=== PATIENT | female | born 1965 | race Caucasian/White ===

== ENCOUNTER 2017-11-04 17:41 | Observation (INO) ==
--- NOTE | 2017-11-04 18:09 | Emergency Department Note ---
Disposition Clinical Impression: Atypical chest pain, S/P gastric bypass Abdominal pain Qualifiers: Abdominal location: left upper quadrant Qualified Code(s): R10.12 - Left upper quadrant pain UTI (urinary tract infection) Qualifiers: Urinary tract infection type: acute cystitis Hematuria presence: without hematuria Qualified Code(s): N30.00 - Acute cystitis without hematuria Disposition: Admitted As Inpatient Condition: Good Referrals: Diana Baig MD [Primary Care Provider] - Forms: ED Satisfaction Letter General Adult HPI - General Chief complaint: ED Chest Pain Stated complaint: chest pain Time Seen by Provider: 11/04/17 18:00 Nursing Notes Reviewed: Yes Vital Signs Reviewed: Yes - History of Present Illness HPI Narrative: 51-year-old female status post gastric bypass 2013, and previous history of hypertension, presents today with chest pain for the last 30 minutes. She reports her chest pain is pressure-like, epigastric, and radiates towards her left neck and left shoulder. She also admits to nausea but no vomiting. Denies being on any anticoagulants, denies taking any medications besides vitamins at home. She reports that she has had four gastric surgeries since her gastric bypass due to scar tissue formation and abdominal pain. Denies prior MD, CVA/TIA. She reports that her last cardiac workup was prior to her gastric bypass 4 years ago when they performed a left heart catheter and she was diagnosed with "slight" CAD. Denies having any stents. Denies PAD. Does admit to dark and smelly urine, denies dysuria, hematuria. Admits to BL upper extremity tingling and numbness. She reports her abdominal pain is getting worse. Decreased in PO intake due to nausea and pain. Quit smoking in 2007, both biological parents had CAD, no previous MD or PAD/ CVA. Mild CAD. History of HTN. Pt Subjective Complaint: Chest pain - Related Data Home Medications Medication Instructions Recorded Confirmed Multivitamin [One Daily Essential] 1 tab PO DAILY 11/04/17 11/04/17 Ondansetron ODT [Zofran ODT] 4 mg PO Q8H PRN 11/04/17 11/04/17 Allergies Allergy/AdvReac Type Severity Reaction Status Date / Time ketorolac [From Toradol] Allergy Hives Verified 11/04/17 19:58 tramadol Allergy Hives Verified 11/04/17 19:58 morphine AdvReac Vomiting Verified 11/04/17 19:58 anti inflammatory Allergy Hives Uncoded 11/04/17 19:58 Review of Systems: As Per HPI Constitutional: Reports: as per HPI Cardiovascular: Reports: as per HPI Respiratory: Reports: as per HPI Gastrointestinal: Reports: as per HPI Genitourinary: Reports: as per HPI Integumentary: Reports: as per HPI Neurological: Reports: as per HPI Endocrine: Reports: as per HPI Past Medical History - Past Medical History Medical history: Reports: coronary artery disease, diabetes, GERD, hyperlipidemia, hypertension, thyroid disease, other Surgical history: Reports: cholecystectomy, other Psychiatric history: Reports: depression 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 - Social History Smoking Status: Former smoker Smokeless Tobacco Status: No Alcohol use: Reports: none Drug use: Reports: none Physical Exam - General Limitations: no limitations General appearance: alert, in no apparent distress - Head Head exam: atraumatic, normocephalic, normal inspection - Eye Eye exam: Present: normal appearance, EOMI - Expanded Eye Exam Pupils: Left: reactive - ENT ENT exam: normal exam, normal oropharynx, mucous membranes moist - Expanded ENT Exam External ear exam: Present: normal external inspection Mouth exam: Present: normal external inspection Teeth exam: Present: normal inspection Throat exam: Present: normal inspection - Neck Neck exam: Present: normal inspection, full ROM, trachea midline - Chest Chest inspection: Present: normal inspection, symmetric chest wall rise - Respiratory Respiratory exam: Present: normal lung sounds bilaterally - Cardiovascular Cardiovascular exam: Present: regular rate, normal rhythm, normal heart sounds - Abdominal Exam Abdominal exam: Present: soft, tenderness (left sided ), normal bowel sounds. Absent: distention, guarding, rebound, rigidity - Extremities Exam Extremities exam: Present: normal inspection, full ROM, pedal edema (2+ bilaterally). Absent: tenderness - Expanded Upper Extremity Exam Shoulder exam: Present: normal inspection, full ROM Arm exam: Present: normal inspection, full ROM Elbow exam: Present: normal inspection, full ROM Forearm/Wrist exam: Present: normal inspection, full ROM Hand exam: Present: normal inspection, full ROM Vascular exam: Normal: capillary refill, radial pulse - Expanded Lower Extremity Exam Hip/Pelvis exam: Present: normal inspection, full ROM Upper leg exam: Present: normal inspection, full ROM Knee exam: Present: normal inspection, full ROM Ankle exam: Present: normal inspection, full ROM Foot/toe exam: Present: normal inspection, full ROM Neurovascular/Tendon exam: Absent: motor deficit, sensory deficit, tendon deficit - Back Exam Back exam: Present: normal inspection, full ROM. Absent: tenderness - Neurological Exam Neurological exam: Present: alert, oriented X3 - Expanded Neurological Exam Patient oriented to: Present: person, place, time Coma Scale Eye Opening: Spontaneous Coma Scale Motor Response: Obeys Commands Coma Scale Verbal Response: Oriented Coma Scale Total: 15 - Psychiatric Psychiatric exam: Present: normal affect, normal mood - Skin Skin exam: Present: warm, dry, intact, normal color Course Course Narrative: Zofran for nausea, Fentanyl for pain. Pending lab work, troponin, CT abd/pelvis, UA with culture. Will admit for cardiac evaluation when lab work and imaging returns. - Reevaluation(s) Reevaluation #1: UA + nitrite, + leukocyte esterase. Will start antibiotics. Time: 19:30 Vital Signs Pulse Rate 73 11/04/17 18:00 Blood Pressure 158/92 11/04/17 18:00 Temperature 98.4 F 11/04/17 18:01 Pulse Rate 67 11/04/17 19:45 Respiratory Rate 20 11/04/17 19:45 Blood Pressure 132/82 11/04/17 19:45 O2 Sat by Pulse Oximetry 99 11/04/17 19:45 Oxygen Delivery Oxygen Delivery Room Air Medical Decision Making - [facility] Narrative Medical decision making narrative: 51F s/p gastric bypass in 2013 with Heart Score 4. FHx of CAD, history of HTN, BMI> 30, age >45. No recent cardiac work-up. We will admit for further cadiac work-up. - Medical Records Medical records reviewed: Yes I reviewed the patient's medical records. - Lab Data Lab results reviewed: Yes I reviewed the patient's lab results. Result diagrams: 11/04/17 19:08 11/04/17 18:55 Lab Results 11/04/17 11/04/17 11/04/17 Range/Units 18:45 18:55 18:55 WBC (4.3-11.1) K/mcL RBC (3.82-4.97) M/mcL Hgb (11.5-15.4) g/dL Hct (35.3-44.9) % MCV (83.0-100.0) fL MCH (28.0-33.3) pg MCHC (31.6-35.5) g/dL RDW (11.5-14.5) % Plt Count (140-400) K/mcL MPV (9.4-12.4) fL Immature Gran % (0-4) % Seg Neutrophils % % Lymphocytes % % Monocytes % % Eosinophils % % Basophils % % Neutrophils # (1.6-8.9) K/mcL Lymphocytes # (0.6-4.6) K/mcL Monocytes # (0.0-1.3) K/mcL Eosinophils # (0.0-0.6) K/mcL Basophils # (0.0-0.2) K/mcL PT 10.2 (9.4-12.1) Seconds INR 1.0 APTT 37.7 H (26.0-36.0) Seconds Sodium 141 (136-145) mEq/L Potassium 3.6 (3.5-5.1) mEq/L Chloride 107 (98-107) mEq/L Carbon Dioxide 26 (23-29) mEq/L BUN 14 (6-20) mg/dL Creatinine 0.72 (0.60-1.20) mg/dL Est GFR ( Amer) > 60 (> 60) Est GFR (Non-Af Amer) > 60 (> 60) BUN/Creatinine Ratio 19 (6-26) Glucose 96 (70-105) mg/dL Calculated Osmolality 292 (280-300) Calcium 9.3 (8.6-10.3) mg/dL Troponin I < 0.03 (< 0.04) ng/mL B-Natriuretic Peptide (Less than 100) pg/mL Urine Color Yellow (Yellow) Urine Clarity Cloudy A (Clear) Urine pH 6.0 (5.0-8.0) pH Units Ur Specific [place] 1.014 (1.010-1.025) Urine Protein Negative (Neg-Trace) mg/dL Urine Glucose (UA) Normal (Normal) mg/dL Urine Ketones Negative (Negative) mg/dL Urine Blood Negative (Negative) Urine Nitrite Positive A (Negative) Urine Bilirubin Negative (Negative) Urine Urobilinogen Normal (Normal) mg/dL Ur Leukocyte Esterase Trace H (Negative) Urine Microscopic RBC 3-5 H (0-3) per hpf Urine Microscopic WBC 5-15 H (0-3) per hpf Ur Squamous Epith Cells Many H (None-Few) per lpf Urine Bacteria Many H (None-Few) per hpf Hyaline Casts None Seen (None-Few) per lpf Ur Culture Indicated? NO. A (NO) 11/04/17 11/04/17 Range/Units 19:08 19:08 WBC 5.7 (4.3-11.1) K/mcL RBC 5.17 H (3.82-4.97) M/mcL Hgb 14.7 (11.5-15.4) g/dL Hct 43.2 (35.3-44.9) % MCV 83.6 (83.0-100.0) fL MCH 28.4 (28.0-33.3) pg MCHC 34.0 (31.6-35.5) g/dL RDW 12.4 (11.5-14.5) % Plt Count 160 (140-400) K/mcL MPV 9.4 (9.4-12.4) fL Immature Gran % 0.9 (0-4) % Seg Neutrophils % 51.5 % Lymphocytes % 38.8 % Monocytes % 6.7 % Eosinophils % 1.2 % Basophils % 0.9 % Neutrophils # 2.9 (1.6-8.9) K/mcL Lymphocytes # 2.2 (0.6-4.6) K/mcL Monocytes # 0.4 (0.0-1.3) K/mcL Eosinophils # 0.1 (0.0-0.6) K/mcL Basophils # 0.1 (0.0-0.2) K/mcL PT (9.4-12.1) Seconds INR APTT (26.0-36.0) Seconds Sodium (136-145) mEq/L Potassium (3.5-5.1) mEq/L Chloride (98-107) mEq/L Carbon Dioxide (23-29) mEq/L BUN (6-20) mg/dL Creatinine (0.60-1.20) mg/dL Est GFR ( Amer) (> 60) Est GFR (Non-Af Amer) (> 60) BUN/Creatinine Ratio (6-26) Glucose (70-105) mg/dL Calculated Osmolality (280-300) Calcium (8.6-10.3) mg/dL Troponin I (< 0.04) ng/mL B-Natriuretic Peptide 31 (Less than 100) pg/mL Urine Color (Yellow) Urine Clarity (Clear) Urine pH (5.0-8.0) pH Units Ur Specific [place] (1.010-1.025) Urine Protein (Neg-Trace) mg/dL Urine Glucose (UA) (Normal) mg/dL Urine Ketones (Negative) mg/dL Urine Blood (Negative) Urine Nitrite (Negative) Urine Bilirubin (Negative) Urine Urobilinogen (Normal) mg/dL Ur Leukocyte Esterase (Negative) Urine Microscopic RBC (0-3) per hpf Urine Microscopic WBC (0-3) per hpf Ur Squamous Epith Cells (None-Few) per lpf Urine Bacteria (None-Few) per hpf Hyaline Casts (None-Few) per lpf Ur Culture Indicated? (NO) - Radiology Data Radiology results reviewed: Yes I reviewed the patient's radiology results. - EKG Data EKG #1 EKG attestation: Yes I reviewed and interpreted this EKG. EKG results narrative: Ventricular rate 72, CANDACE 151, QRS 89. T wave inversion noted on V1/V2, chronic when compared to previous EKG. EKG shows normal: sinus rhythm Rate: normal Rhythm: NSR When compared to previous EKG there are: no significant changes Interpretation: no acute changes
[2017-11-04] MEDS ORDERED: *HR* FentaNYL (PF) 100 MCG/2 ML VIAL IVP ONE ×2 (18:34→20:39)
[2017-11-04] MEDS ORDERED: Ondansetron 4 MG/2 ML VIAL IVP ONE ×2 (18:34→20:39)
[2017-11-04 18:55] LABS: Bilirubin,Urine Negative (Negative); Blood,Urine Negative (Negative); Clarity,Urine Cloudy (Clear); Color,Urine Yellow (Yellow); Glucose,Urine (UA) Normal (Normal); Ketones,Urine Negative (Negative); Leukocyte Esterase,Urine Trace (Negative); Nitrite,Urine Positive (Negative); Protein,Urine Negative (Neg-Trace); Specific Gravity,Urine 1.014 (1.010-1.025); Urobilinogen,Urine Normal (Normal)
[2017-11-04 18:59] LABS: Bacteria,Urine Many per hpf (None-Few); Hyaline Casts,Urine None Seen per lpf (None-Few); Squamous Epithelial Cell,Urine Many per lpf (None-Few)
[2017-11-04 19:17] LABS: Hematocrit 43.2 % (35.3-44.9); Hemoglobin 14.7 g/dL (11.5-15.4); Immature Granulocytes % 0.9 % (0-4); Lymphocytes % 38.8 %; Mean Corpuscular Hemoglobin 28.4 pg (28.0-33.3); Mean Corpuscular Volume 83.6 fL (83.0-100.0); Mean Platelet Volume 9.4 fL (9.4-12.4); Platelet Count 160 K/mcL (140-400); Red Blood Count 5.17 M/mcL (3.82-4.97); Red Cell Distribution Width 12.4 % (11.5-14.5); Segmented Neutrophils % 51.5 %
[2017-11-04 19:18] LABS: Basophils # 0.1 K/mcL (0.0-0.2); Basophils % 0.9 %; Eosinophils # 0.1 K/mcL (0.0-0.6); Eosinophils % 1.2 %; Lymphocytes # 2.2 K/mcL (0.6-4.6); Monocytes # 0.4 K/mcL (0.0-1.3); Monocytes % 6.7 %; Neutrophils # 2.9 K/mcL (1.6-8.9)
--- NOTE | 2017-11-04 19:30 | Emergency Department Note ---
Disposition Clinical Impression: Atypical chest pain, S/P gastric bypass Abdominal pain Qualifiers: Abdominal location: left upper quadrant Qualified Code(s): R10.12 - Left upper quadrant pain UTI (urinary tract infection) Qualifiers: Urinary tract infection type: acute cystitis Hematuria presence: without hematuria Qualified Code(s): N30.00 - Acute cystitis without hematuria Disposition: Admitted As Inpatient Condition: Good General Adult HPI - General Chief complaint: ED Chest Pain Stated complaint: chest pain Time Seen by Provider: 11/04/17 18:00 Source: patient Limitations: no limitations - History of Present Illness Pain Scale: 6 - Related Data Home Medications Medication Instructions Recorded Confirmed Multivitamin [One Daily Essential] 1 tab PO DAILY 11/04/17 11/04/17 Ondansetron ODT [Zofran ODT] 4 mg PO Q8H PRN 11/04/17 11/04/17 Allergies Allergy/AdvReac Type Severity Reaction Status Date / Time ketorolac [From Toradol] Allergy Hives Verified 11/04/17 19:58 tramadol Allergy Hives Verified 11/04/17 19:58 morphine AdvReac Vomiting Verified 11/04/17 19:58 anti inflammatory Allergy Hives Uncoded 11/04/17 19:58 Constitutional: Reports: as per HPI Cardiovascular: Reports: as per HPI Respiratory: Reports: as per HPI Gastrointestinal: Reports: as per HPI Genitourinary: Reports: as per HPI Integumentary: Reports: as per HPI Neurological: Reports: as per HPI Endocrine: Reports: as per HPI Past Medical History - Past Medical History Medical history: Reports: coronary artery disease, diabetes, GERD, hyperlipidemia, hypertension, thyroid disease, other Surgical history: Reports: cholecystectomy, other Psychiatric history: Reports: depression 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 - Social History Smoking Status: Former smoker Smokeless Tobacco Status: No Alcohol use: Reports: none Drug use: Reports: none Physical Exam - General Limitations: no limitations General appearance: alert, in no apparent distress Course Vital Signs Pulse Rate 73 11/04/17 18:00 Blood Pressure 158/92 11/04/17 18:00 Temperature 97.7 F 11/04/17 22:55 Pulse Rate 59 11/04/17 22:55 Respiratory Rate 15 11/04/17 22:55 Blood Pressure 117/74 11/04/17 22:55 O2 Sat by Pulse Oximetry 100 11/04/17 22:55 Oxygen Delivery Oxygen Delivery Room Air Medical Decision Making - Lab Data Result diagrams: 11/04/17 19:08 11/04/17 18:55 Lab Results 11/04/17 11/04/17 11/04/17 Range/Units 18:45 18:55 18:55 WBC (4.3-11.1) K/mcL RBC (3.82-4.97) M/mcL Hgb (11.5-15.4) g/dL Hct (35.3-44.9) % MCV (83.0-100.0) fL MCH (28.0-33.3) pg MCHC (31.6-35.5) g/dL RDW (11.5-14.5) % Plt Count (140-400) K/mcL MPV (9.4-12.4) fL Immature Gran % (0-4) % Seg Neutrophils % % Lymphocytes % % Monocytes % % Eosinophils % % Basophils % % Neutrophils # (1.6-8.9) K/mcL Lymphocytes # (0.6-4.6) K/mcL Monocytes # (0.0-1.3) K/mcL Eosinophils # (0.0-0.6) K/mcL Basophils # (0.0-0.2) K/mcL PT 10.2 (9.4-12.1) Seconds INR 1.0 APTT 37.7 H (26.0-36.0) Seconds Sodium 141 (136-145) mEq/L Potassium 3.6 (3.5-5.1) mEq/L Chloride 107 (98-107) mEq/L Carbon Dioxide 26 (23-29) mEq/L BUN 14 (6-20) mg/dL Creatinine 0.72 (0.60-1.20) mg/dL Est GFR ( Amer) > 60 (> 60) Est GFR (Non-Af Amer) > 60 (> 60) BUN/Creatinine Ratio 19 (6-26) Glucose 96 (70-105) mg/dL Calculated Osmolality 292 (280-300) Calcium 9.3 (8.6-10.3) mg/dL Troponin I < 0.03 (< 0.04) ng/mL B-Natriuretic Peptide (Less than 100) pg/mL Urine Color Yellow (Yellow) Urine Clarity Cloudy A (Clear) Urine pH 6.0 (5.0-8.0) pH Units Ur Specific [place] 1.014 (1.010-1.025) Urine Protein Negative (Neg-Trace) mg/dL Urine Glucose (UA) Normal (Normal) mg/dL Urine Ketones Negative (Negative) mg/dL Urine Blood Negative (Negative) Urine Nitrite Positive A (Negative) Urine Bilirubin Negative (Negative) Urine Urobilinogen Normal (Normal) mg/dL Ur Leukocyte Esterase Trace H (Negative) Urine Microscopic RBC 3-5 H (0-3) per hpf Urine Microscopic WBC 5-15 H (0-3) per hpf Ur Squamous Epith Cells Many H (None-Few) per lpf Urine Bacteria Many H (None-Few) per hpf Hyaline Casts None Seen (None-Few) per lpf Ur Culture Indicated? NO. A (NO) 11/04/17 11/04/17 Range/Units 19:08 19:08 WBC 5.7 (4.3-11.1) K/mcL RBC 5.17 H (3.82-4.97) M/mcL Hgb 14.7 (11.5-15.4) g/dL Hct 43.2 (35.3-44.9) % MCV 83.6 (83.0-100.0) fL MCH 28.4 (28.0-33.3) pg MCHC 34.0 (31.6-35.5) g/dL RDW 12.4 (11.5-14.5) % Plt Count 160 (140-400) K/mcL MPV 9.4 (9.4-12.4) fL Immature Gran % 0.9 (0-4) % Seg Neutrophils % 51.5 % Lymphocytes % 38.8 % Monocytes % 6.7 % Eosinophils % 1.2 % Basophils % 0.9 % Neutrophils # 2.9 (1.6-8.9) K/mcL Lymphocytes # 2.2 (0.6-4.6) K/mcL Monocytes # 0.4 (0.0-1.3) K/mcL Eosinophils # 0.1 (0.0-0.6) K/mcL Basophils # 0.1 (0.0-0.2) K/mcL PT (9.4-12.1) Seconds INR APTT (26.0-36.0) Seconds Sodium (136-145) mEq/L Potassium (3.5-5.1) mEq/L Chloride (98-107) mEq/L Carbon Dioxide (23-29) mEq/L BUN (6-20) mg/dL Creatinine (0.60-1.20) mg/dL Est GFR ( Amer) (> 60) Est GFR (Non-Af Amer) (> 60) BUN/Creatinine Ratio (6-26) Glucose (70-105) mg/dL Calculated Osmolality (280-300) Calcium (8.6-10.3) mg/dL Troponin I (< 0.04) ng/mL B-Natriuretic Peptide 31 (Less than 100) pg/mL Urine Color (Yellow) Urine Clarity (Clear) Urine pH (5.0-8.0) pH Units Ur Specific [place] (1.010-1.025) Urine Protein (Neg-Trace) mg/dL Urine Glucose (UA) (Normal) mg/dL Urine Ketones (Negative) mg/dL Urine Blood (Negative) Urine Nitrite (Negative) Urine Bilirubin (Negative) Urine Urobilinogen (Normal) mg/dL Ur Leukocyte Esterase (Negative) Urine Microscopic RBC (0-3) per hpf Urine Microscopic WBC (0-3) per hpf Ur Squamous Epith Cells (None-Few) per lpf Urine Bacteria (None-Few) per hpf Hyaline Casts (None-Few) per lpf Ur Culture Indicated? (NO) Attestation Statement - Attestation Attestation: I examined this patient and my medical decision-making was reviewed with the Resident Physician. I agree with the documented findings, disposition and treatment plan as described except to the extent set forth below. I had face-to -face time with patient. Patient developed chest pain earlier today across her chest. He also has chronic ongoing abdominal pain. Status post gastric bypass remotely. She has had trouble with recurrent adhesions. Physical examination her lungs are clear cardiac vascular exams unremarkable. EKG shows no acute change. We will obtain lab work she will likely required admission for rule out and she does have risk factors.
[2017-11-04 19:31] LABS: Prothrombin Time 10.2 Seconds (9.4-12.1)
[2017-11-04 19:34] LABS: Activated Partial Thrombo Time 37.7 Seconds (26.0-36.0)
[2017-11-04 19:37] LABS: Troponin I < 0.03 ng/mL (< 0.04)
[2017-11-04] MEDS ORDERED: cefTRIAXone 1,000 MG in Water for inj. (sterile) 20 ML 10 ML IVP ONE (19:42)
[2017-11-04 19:46] LABS: BUN/Creatinine Ratio 19 (6-26); Blood Urea Nitrogen 14 mg/dL (6-20); Calcium 9.3 mg/dL (8.6-10.3); Carbon Dioxide 26 mEq/L (23-29); Chloride 107 mEq/L (98-107); Potassium 3.6 mEq/L (3.5-5.1); Sodium 141 mEq/L (136-145); eGFR For African Americans > 60 (> 60); eGFR For Non-African Americans > 60 (> 60)
[2017-11-04 20:06] LABS: Glucose 96 mg/dL (70-105); Osmolality,Calculated 292 (280-300)
--- NOTE | 2017-11-04 23:15 | Internal Med History&Physical ---
<Audrey Forbes - Last Filed: 11/05/17 01:39> Date of Encounter: 11/05/17 Time of Encounter: 23:08 Internal Medicine - H&P: HPI Chief complaint: CP Admitted From: Home Plans for Post Hospital Care: Home History of present illness: Ms. Collins is a 51 year old female with a past medical history of hypertension and gastric bypass 2013 who presented to the ED with chest pain that began 30 minutes before arrival to the ED (5:30). Chest pain: Describes chest pain as an dull, epigastric pain with numbness and tingling to her left arm. Admits to associated nausea. She states that she became very anxious afterwards. Patient states that she has had previous panic attacks which have felt similar to this. Patient denies associated diaphoresis , shortness of breath, palpitations. Patient has noticed increased swelling of lower extremities bilaterally the last month and has noticed a 15 pound weight gain that denies orthopnea. Nuclear stress test 03/05/15 non-diagnostic. No echo reported in our system. Abdominal pain: She states that she has been nauseous that she has had a prior history of a gastric bypass 05/07 and multiple adhesions. He has been having right upper quadrant abdominal pain for 1 month. Last bowel movement was this morning. Patient states that she has pencil-sized stools but has had this since her gastric bypass surgery on 05/07. She denies melena, hematochezia, diarrhea. She does admit to night sweats. Last colonoscopy was 3 years ago. Upon arrival to the ED, vitals were wnl except for a mildly elevated BP = 158/ 82. Chest x-ray was negative for acute processes. Abdominal and pelvic CT showed no acute findings. Troponin negative. UA postitive for nitrates. Patient states chest pain was relieved after giving Zofran and Fentanyl. Cardiac work-up: Nulcear stress test 03/05/15 - EKG is nondiagnostic for ischemia due to baseline nonspecific ST and T changes. Past Med Surg Social Fam HX - Past Medical History Medical history: coronary artery disease, diabetes, GERD, hyperlipidemia, hypertension, thyroid disease, other Additional medical history: restrictive lung disease, irrregular heartbeat Psychiatric history: depression - Past Surgical History Surgical History: cholecystectomy, other Additional surgical history: gastric bypass - Social History Smoking Status: Former smoker Smokeless Tobacco Status: No Alcohol use: none Drug use: none - Family History Father Living Status: Hx Family Cardiac Disorders: Yes Hx Family Endocrine Disorder: Yes Mother Living Status: Still Living Hx Family Cardiac Disorders: Yes Internal Medicine - H&P: Meds Multivitamin [One Daily Essential] 1 tab PO DAILY 11/04/17 [History] Ondansetron ODT [Zofran ODT] 4 mg PO Q8H PRN 11/04/17 [History] 3 Allergy/AdvReac Type Severity Reaction Status Date / Time ketorolac [From Toradol] Allergy Hives Verified 11/04/17 19:58 tramadol Allergy Hives Verified 11/04/17 19:58 morphine AdvReac Vomiting Verified 11/04/17 19:58 anti inflammatory Allergy Hives Uncoded 11/04/17 19:58 All Systems PM: A 10-system review of systems was performed and is negative for pertinent findings except as documented above in the HPI. - Constitutional Vitals: Temp Pulse Resp BP Pulse Ox 97.7 F 59 15 117/74 100 11/04/17 22:55 11/04/17 22:55 11/04/17 22:55 11/04/17 22:55 11/04/17 22:55 Exam: Constitutional: Alert, in no acute distress Head: Normocephalic, atraumatic Heart: Normal, regular rate and rhythm, no murmurs Lungs: Clear to auscultation, no wheezes, rales, or rhonchi Abdomen: tender in left, upper and lower quadrant, Soft, nondistended, nontender, bowel sounds present and normal, no guarding or rigidity. Extremities: +1 pitting edema, No clubbing, radial pulse +2/4, capillary refill <2sec. Skin: Skin warm and dry, no lesions, no rashes, no jaundice Neurologic: Cranial nerves II through XII grossly intact, strength 5/5 in all extremitites Psych: Cooperative with exam, good eye contact, cognitive function intact, speech clear, thought process logical, and goal directed Internal Med - H&P Results - Labs CBC & Chem 7: 11/05/17 00:50 11/05/17 00:50 - Assessment and plan (1) Chest pain Current Visit: No Status: Acute Assessment and plan: No cardiac history. Patient describes chest pain as epigastric with associated nausea. No previous cardiac work-up EKG shows T wave inversion noted on V1/V2, unchanged from previous EKG. Initial Troponin negative. Plan: - trending troponins - Echo pending - continue telemetry Qualifiers: Chest pain type: other chest pain Qualified Code(s): R07.89 - Other chest pain; R07.8 - Other chest pain (2) Abdominal pain Current Visit: Yes Status: Acute Assessment and plan: LUQ abdominal pain and nausea for 1 month that has worsened. Could possibly be due to adhesions again as patient has had multiple surgeries for removal of adhesions or could be partially related to UTI. CT abd and pelvis negative. Lipase pending. Patient allergic to Ketorolac, tramadol, and morphine- hives. Will give patient Tylenol for now. Plan: - zofran and Phenergan prn - Tylenol for pain for now Qualifiers: Abdominal location: left upper quadrant Qualified Code(s): R10.12 - Left upper quadrant pain (3) UTI (urinary tract infection) Current Visit: Yes Status: Acute Assessment and plan: Nitrates postitive. Will begin Cipro 250mg BID until cultures return. Urine cultures sent. Qualifiers: Urinary tract infection type: acute cystitis Hematuria presence: without hematuria Qualified Code(s): N30.00 - Acute cystitis without hematuria (4) DVT prophylaxis Current Visit: Yes Status: Acute Assessment and plan: Heparin SQ - Time Spent With Patient Total time spent is greater than 50% in coordination of care (as documented) at patient's floor/unit and/or counseling patient: <Pat Gibbs O - Last Filed: 11/05/17 04:21> Date of Encounter: 11/05/17 Internal Medicine - H&P: HPI Admitted From: Emergency Dept Plans for Post Hospital Care: Home History of present illness: Ms. Collins is a 51 year old female with hx gastric bypass and surgeries for adhesinos x 4 done at [place]. Pt states she is not having chest pain at this time. LUQ pain persists and states she is nauseous. Zofran helps with nausea, however, p requesting something for pain. She states she was given Fentanyl in Ed and that helped. Allergies include Morpine, Tramadol, Ketorolac, and anti-inflammatory. All Systems PM: A 10-system review of systems was performed and is negative for pertinent findings except as documented above in the HPI. - Constitutional Vitals: Temp Pulse Resp BP Pulse Ox 97.8 F 72 15 100/62 97 11/05/17 03:43 11/05/17 03:43 11/05/17 03:43 11/05/17 03:43 11/05/17 03:43 General appearance: Present: A&O X 3, no acute distress - Head Head exam: Present: atraumatic, normocephalic - Eye Eye exam: Present: PERRL, conjuntiva pink, sclera anicteric Pupils: Present: PERRL - Neck Neck exam general surgery: Present: supple, trachea midline. Absent: lymphadenopathy - Respiratory Respiratory exam: Present: CTAB. Absent: accessory muscle use, rales, rhonchi, wheezes - Cardiovascular Cardiovascular exam: Present: RRR, +S1, +S2. Absent: diastolic murmur, gallop, rubs, systolic murmur - GI/Abdominal GI/Abdominal exam: Present: normal bowel sounds, soft, no peritoneal signs. Absent: distended, tenderness - Extremities Exam Extremities exam: Present: warm, radial pulses palpable and symmetrical. Absent : calf tenderness, cyanotic, pedal edema - Neurological Exam Neurological exam: Present: CN II-XII intact, oriented X3, no focal deficits. Absent: pronater drift, facial droop, speech deficit - Skin Skin exam: Present: dry, intact Internal Med - H&P Results - Labs CBC & Chem 7: 11/05/17 00:50 11/05/17 00:50 Labs: Short CBC 11/05/17 Range/Units 00:50 WBC 4.6 (4.3-11.1) K/mcL Hgb 13.7 (11.5-15.4) g/dL Hct 40.5 (35.3-44.9) % Plt Count 155 (140-400) K/mcL BMP 11/05/17 00:50 Sodium 140 Potassium 3.8 Chloride 108 H Carbon Dioxide 24 BUN 12 Creatinine 0.86 Glucose 97 Calcium 8.9 Cardiac Enzymes 11/05/17 Range/Units 00:50 Troponin I < 0.03 (< 0.04) ng/mL - Attending Attestation I performed a history and physical exam of the patient and discussed her management with the resident. I reviewed the residents note and agree with the documented findings and plan of care. Assessment and plan 1. Chest pain. Initial trop <0.03. CXR neg. EKG showed non-specific changes similar to previous EKG. Will cycle troponin. Will place on ASA if pt is able to tolerate. Nitro SL prn. Will check lipid panel. 2. LUQ abdominal pain. Will check Lipase. CT abd/pelvis showed no acute findings. Recommend pt follow up with her primary surgeon out pt as scheduled. - Time Spent With Patient Total time spent is greater than 50% in coordination of care (as documented) at patient's floor/unit and/or counseling patient:
[2017-11-05] MEDS ORDERED: Naloxone 0.4 MG/ML INJ IVP PRN (00:07)
[2017-11-05] MEDS ORDERED: Ondansetron 4 MG/2 ML VIAL IVP PRN (00:50)
[2017-11-05 01:11] LABS: Hematocrit 40.5 % (35.3-44.9); Hemoglobin 13.7 g/dL (11.5-15.4); Mean Corpuscular HGB Conc 33.8 g/dL (31.6-35.5); Mean Corpuscular Hemoglobin 28.8 pg (28.0-33.3); Mean Corpuscular Volume 85.3 fL (83.0-100.0); Mean Platelet Volume 9.6 fL (9.4-12.4); Platelet Count 155 K/mcL (140-400); Red Blood Count 4.75 M/mcL (3.82-4.97); Red Cell Distribution Width 12.3 % (11.5-14.5)
[2017-11-05] MEDS: Acetaminophen 325 MG TABLET PO PRN ×2 (01:29→09:24)
[2017-11-05] MEDS: *HR* Promethazine 25 MG/ML VIAL IVP PRN ×2 (01:30→07:46)
[2017-11-05 01:31] LABS: BUN/Creatinine Ratio 14 (6-26); Blood Urea Nitrogen 12 mg/dL (6-20); Calcium 8.9 mg/dL (8.6-10.3); Carbon Dioxide 24 mEq/L (23-29); Chloride 108 mEq/L (98-107); Glucose 97 mg/dL (70-105); Osmolality,Calculated 290 (280-300); Phosphorous 4.1 mg/dL (2.7-4.5); Potassium 3.8 mEq/L (3.5-5.1); Sodium 140 mEq/L (136-145); eGFR For African Americans > 60 (> 60); eGFR For Non-African Americans > 60 (> 60)
[2017-11-05 07:13] LABS: Lipase 40 Units/L (11-82)
[2017-11-05 07:14] LABS: Troponin I < 0.03 ng/mL (< 0.04)
[2017-11-05 15:21] VITALS: BP 106/68
--- NOTE | 2017-11-05 16:23 | Discharge Summary ---
- NOTES TO OUTPATIENT PROVIDER Notes to Outpatient Provider: Presented with chest pain and epigastric pain as well as some mild numbness and tingling to left arm. Patient has history of anxiety and reports she thought this was a panic attack but wanted to have further evaluation. CVS workup completed. Troponins negative 3, echocardiogram unremarkable. Chest x-ray negative for acute process. ECG is nondiagnostic for ischemia due to baseline nonspecific ST and T-wave changes. No prior cardiac history. Chest pain self-limiting and has not returned since admission. Instructed to follow-up with PCP within 1 week of discharge. Orders not resulted at time of discharge: Pending orders 11/05/17 01:03 Culture,Urine [RM] Routine Date of Encounter: 11/05/17 Time of Encounter: 16:21 - Discharge Diagnosis (1) Chest pain Priority: Primary Status: Acute Assessment and Plan: Presented with left-sided chest pain and epigastric pain. Mild numbness and tingling in the left arm. Associated nausea but denies shortness of breath or diaphoresis No previous cardiac work-up EKG shows T wave inversion noted on V1/V2, unchanged from previous EKG. troponin negative 3 Chest pain is resolved. No return of chest pain since admission. Does not appear to be cardiac source Patient is not diabetic does not have hypertension and no significant family history for early cardiac demise. No prior history of cardiac disease Uneventful hospital course. Being discharged in stable condition. Instructed to follow-up with PCP within 1 week of discharge. Also, informed to return to the ED should chest pain return. Patient verbalizes understanding. Denies any further questions or concerns. Qualifiers: Chest pain type: other chest pain Qualified Code(s): R07.89 - Other chest pain; R07.8 - Other chest pain (2) Abdominal pain Priority: Secondary Status: Acute Assessment and Plan: LUQ abdominal pain and nausea for 1 month that has been getting progressively worse Could possibly be due to adhesions as patient has had multiple abdominal surgeries s/p gastric bypass surgery CT abdomen/pelvis negative for acute abdominal process. Lipase pending 40for now. Offered patient to stay for further workup and evaluation, declined. Reports that she is going to see her surgeon this coming week Qualifiers: Abdominal location: left upper quadrant Qualified Code(s): R10.12 - Left upper quadrant pain (3) UTI (urinary tract infection) Priority: Secondary Status: Acute Assessment and Plan: Nitrates postitive. Urine cultures sent Continue Levaquin at discharge 5 days Qualifiers: Urinary tract infection type: acute cystitis Hematuria presence: without hematuria Qualified Code(s): N30.00 - Acute cystitis without hematuria (4) DVT prophylaxis Priority: Secondary Status: Acute Assessment and Plan: SQ heparin Hospital course: Ms. Collins is a 51 year old female Please see assessment and plan for hospital course Discharge discussed with: patient, family, nurse, case management, training consultant - Time Spent with Patient Total time spent providing and/or coordinating discharge services: Less than 30 minutes - Discharge Medications Prescriptions: Ciprofloxacin [Cipro] 250 mg PO BID 5 Days #10 tablet Home Medications: Multivitamin [One Daily Essential] 1 tab PO DAILY 11/04/17 [History] Ondansetron ODT [Zofran ODT] 4 mg PO Q8H PRN 11/04/17 [History] Ciprofloxacin [Cipro] 250 mg PO BID 5 Days #10 tablet 11/05/17 [Rx] Allergies/Adverse Reactions: 3 Allergy/AdvReac Type Severity Reaction Status Date / Time ketorolac [From Toradol] Allergy Hives Verified 11/04/17 19:58 tramadol Allergy Hives Verified 11/04/17 19:58 morphine AdvReac Vomiting Verified 11/04/17 19:58 anti inflammatory Allergy Hives Uncoded 11/04/17 19:58 Date of admission: 11/04/17 21:06 Primary care physician: Diana Baig MD Discharging clinician: Anton Gibson Anticipated date of discharge: 11/05/17 - Constitutional Vitals: Temp Pulse Resp BP Pulse Ox 98.0 F 78 17 106/68 98 11/05/17 15:19 11/05/17 15:19 11/05/17 15:19 11/05/17 15:19 11/05/17 15:19 General appearance: Present: A&O X 3, no acute distress - Head Head exam: Present: atraumatic, normocephalic - Eye Eye exam: Present: EOMI, PERRL, conjuntiva pink, sclera anicteric Pupils: Present: PERRL - Neck Neck exam general surgery: Present: supple, trachea midline. Absent: lymphadenopathy - Respiratory Respiratory exam: Present: CTAB. Absent: accessory muscle use, rales, rhonchi, wheezes - Cardiovascular Cardiovascular exam: Present: RRR, +S1, +S2. Absent: diastolic murmur, gallop, rubs, systolic murmur - GI/Abdominal GI/Abdominal exam: Present: normal bowel sounds, soft, no peritoneal signs. Absent: distended, tenderness - Extremities Exam Extremities exam: Present: warm, radial pulses palpable and symmetrical. Absent : calf tenderness, cyanotic, pedal edema - Neurological Exam Neurological exam: Present: CN II-XII intact, oriented X3, no focal deficits. Absent: pronater drift, facial droop, speech deficit - Skin Skin exam: Present: dry, intact - Patient Status Disposition: Home, Self-Care Condition: Good Overall status at discharge: patient is back to baseline - Discharge Instructions Instructions: Chest Pain (DC), Acute Abdominal Pain (DC) Follow Up With: Diana Baig MD [Primary Care Provider] - 11/12/17 11:00 am Additional Instructions: Follow-up appointments: If there is not an appointment listed below, please call your physician and schedule a follow-up appointment. If you have congestive heart failure and your symptoms return, make an appointment with your physician. Medication List: Carry an up to date list of medications you are taking at all time. We have given you an updated medication list including any new medications that you have been prescribed. Please provide that list to your primary provider Symptoms: If your condition changes or you experience any of the following symptoms, notify your physician immediately: Unusual or worsening pain, fever, persistent nausea and vomiting, bleeding, increase in swelling (especially in your legs), sudden weight gain, extreme dizziness, chest pain, increased drainage or redness from a wound or incision. Go to the emergency department if you experience a problem with breathing. Weights: If you have a history of swelling or shortness of breath, weigh yourself daily and notify your physician if you have a weight gain of two or more pounds in one day or 5 or more pounds in a week. If you experience any of the warning signs for stroke: Sudden numbness or weakness of the face, arm or leg; especially on one side of the body, sudden confusion, trouble speaking or understanding, sudden trouble seeing in one or both eyes, sudden trouble walking, dizziness, loss of balance or coordination, sudden sever headache with no cause; Call 911 or go to the emergency room. Stroke is a medical emergency. Some risk factors for stroke: Age, cigarette smoking, diabetes, excessive alcohol consumption, family history , high blood pressure, overweight, physical inactivity, prior stroke, heart attack, diagnosis of carotid artery stenosis or other artery disease. If you smoke, STOP: Smoking or tobacco use significantly increases your risk of heart and lung disease. Your chance of disease greatly increases if you continue to smoke. For more information, call the [place] tobacco quit line for smoking cessation 4 QUIT-NOW ( ) - Diet and Activity Activity: increase activity as tolerated Diet: advance to your usual diet
--- NOTE | 2017-11-08 06:36 | Electrocardiograph Report ---
[address] [address] Test Date: 2017-11-04 Pat Name: Emily Collins Department: 102 Room: 3B24 Gender: F [employer] History Professor: Ernesto : 1965 Requested By: Anthony Patel Order Number: [id number] Reading MD: Sudarshan Mckeon Measurements Intervals [place] Rate: 72 P: 34 [place]: 151 QRS: 30 QRSD: 89 T: 11 QT: 380 QTc: 404 Interpretive Statements SINUS RHYTHM WITH SINUS ARRHYTHMIA BASELINE ARTIFACT Electronically Signed On 11-08-2017 6:35:07 EDT by Sudarshan Mckeon
== END 2017-11-05 17:15 | disposition home or self-care (01) ==
LOC: EMEROO 17:41 → 3BNU 17:41
PROVIDERS: ADMIT Internal Medicine; ATTEND Internal Medicine